=== PATIENT | male | born 2000 | race Caucasian/White ===

== ENCOUNTER 2024-11-27 20:59 | Emergency (ER) | payer OTHER ==
[~2024-11-27] VITALS: Ht 175.3 cm; Wt 115.0 kg
[2024-11-27] MEDS ORDERED: OXYMETAZOLINE HCL 30 ML BTL NAS ONE (22:45)
[2024-11-27] MEDS ORDERED: TRANEXAMIC ACID 1,000 MG/10 ML AMP NAS ONE (23:15)
[2024-11-27 23:44] VITALS: BP 151/89
== END 2024-11-27 23:44 | disposition home or self-care (01) ==
LOC: ED 20:59
DX: R04.0 Epistaxis (principal)
CPT/HCPCS: 30901; 99283